=== PATIENT | male | born 1955 | race Caucasian/White ===

== ENCOUNTER 2018-01-03 08:45 | Observation (INO) | payer OTHER ==
[~2018-01-03] VITALS: Ht 190.5 cm; Wt 133.0 kg
[2018-01-03] VITALS (13 sets, daily range): BP systolic 112–135; BP diastolic 66–91
--- NOTE | ~2018-01-03 | H ---
[address] [address] HISTORY AND PHYSICAL Name: YANET TURCIOS V Room: [address] [place] Pat[place]#: [id number] Admission: 01/03/18 Attend Phys: Steve Patten MD, Discharge: 01/04/18 Date of : 53 Report #: [id number] THIS REPORT FOR: //name// Please refer to the History and Physical performed in the physician's office. By: 1533Medical Records Staff MARIA EUGENIA /JUNIE
[~2018-01-03 08:45] MED LIST: AMBIEN5 MG; ASPIR 8181 MG PO; ATORVASTATIN CA40 MG PO; CARVEDILOL12.5 MG PO; CARVEDILOL3.125 MG PO; CLOPIDOGREL75 MG PO; EFFIENT10 MG PO; IRON325 PO; LASIX 40 MG TAB40 M2 PO; LISINOPRIL5 MG PO; LOVASTATIN 20 M20 MG PO; NASONEX17 GM NASAL; NITROGLYCERIN0.4 MG SUBLING; OMEPRAZOLE 20 M20 M1; PEPCID20 MG PO; PHENTERMINE HCL30 MG PO; POTASSIUM20 PO; PRILOSEC 20 MG20 MG PO
[2018-01-03 09:17] LABS: HEMATOCRIT 47.2 % (42.0-52.0); HEMOGLOBIN 15.3 gm/dL (14.0-18.0); MCHC 32.4 g/dL (28.0-37.0); MCV 86.5 fL (80.0-100.0); MPV 8.3 fl. (7.2-11.1); RBC 5.46 mil/uL (4.50-6.00); RDW-CV 16.9 % (10.5-14.5); WBC 6.6 thou/uL (4.0-11.0)
[2018-01-03] MEDS ORDERED: ATORVASTATIN CA40 MG PO (09:20)
[2018-01-03] MEDS ORDERED: PROTONIX40 M1 PO (09:21)
[2018-01-03] MEDS ORDERED: FLOMAX0.4 MG PO (09:21)
[2018-01-03] MEDS ORDERED: PROSCAR 5MG TABL5 MG PO (09:21)
[2018-01-03] MEDS ORDERED: ALLER-FLO15.8 ML INH (09:22)
[2018-01-03] MEDS ORDERED: ALLER-TEC D 5-1 EACH PO (09:22)
[2018-01-03] MEDS ORDERED: IBUPROFEN 400400 M2 PO (09:22)
[2018-01-03 09:27] LABS: ANION GAP 10 mmol/L (7-16); BUN 21 mg/dL (7-18); CALCIUM 8.6 mg/dL (8.5-10.1); CHLORIDE 104 mmol/L (98-107); CO2 26 mmol/L (21-32); CREATININE 1.2 mg/dL (0.6-1.3); GLUCOSE 125 mg/dL (70-99); POTASSIUM 4.1 mmol/L (3.5-5.1); SODIUM 140 mmol/L (136-145)
[2018-01-03 09:29] LABS: APTT 26.8 Seconds (25.0-31.3); PROTIME 10.5 Seconds (9.20-11.50)
[2018-01-03 09:32] LABS: ALBUMIN 4.1 g/dL (3.4-5.0); ALKALINE PHOSPHATASE 63 U/L (46-116); CHOLESTEROL 170 mg/dL (<200); HDL CHOLESTEROL 65 mg/dL (>40); LDL CHOLESTEROL 99 mg/dL (<100); SERUM ASSESSMENT Clear; SGOT 17 U/L (15-37); SGPT 25 U/L (30-65); TC:HDL 2.6 Ratio (Not establshd); TRIGLYCERIDE 32 mg/dL (<150); VLDL 6 mg/dL (<40)
--- NOTE | 2018-01-03 11:06 | EKG ---
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: : 1955 Requested By: Steve Patten Order Number: [id number] Reading MD: Steve Patten Measurements Intervals [place] Rate: 78 P: 22 SC: 219 QRS: -19 QRSD: 99 T: 8 QT: 365 QTc: 416 Interpretive Statements Sinus rhythm Borderline prolonged SC interval Probable left atrial enlargement Abnormal R-wave progression, early transition Inferior infarct, old Compared to ECG 04/28/2016 14:35:16 Myocardial infarct finding now present Electronically Signed On 01-03-2018 11:05:55 CDT by Steve Patten [email or web address] <ELECTRONICALLY SIGNED> By: Steve Patten MD, FAC 01/03/18 1105 0925 Steve Patten MD, [facility] /EPI
--- NOTE | 2018-01-03 14:56 | EKG ---
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1955 Requested By: Steve Patten Order Number: [id number] Alida MD: Steve Patten Measurements Intervals [place] Rate: 65 P: 40 MD: 219 QRS: -8 QRSD: 101 T: 19 QT: 409 QTc: 426 Interpretive Statements Sinus rhythm Borderline prolonged MD interval Abnormal R-wave progression, early transition Compared to ECG 01/03/2018 09:25:24 Myocardial infarct finding no longer present Electronically Signed On 01-03-2018 14:56:33 CDT by Steve Patten [email or web address] <ELECTRONICALLY SIGNED> By: Steve Patten MD, FACC 01/03/18 1456 1352 1352 Steve Patten MD, [facility] /EPI
--- NOTE | 2018-01-03 15:32 | CARD ---
[address] [address] CARDIAC CATH REPORT Name: YANET TURCIOS V Room: [address] [place] MVaibhav#: [id number] Admission: 01/03/18 Attend Phys: Steve Patten MD, Discharge: Date of : 53 Report #: [id number] THIS REPORT FOR: //name// APPROVED REPORT Study performed: 01/03/2018 10:40:54 Patient Details Patient Status: Out-Patient Room #: The patient is a 62 year-old male Event Personnel Steve Patten Mosaicist, Misti Mayen RN Nanny/Household Manager, Carolina Ordaz, Sushant Alves (R) Scrub Procedures Performed Art Access - R femoral artery* Left Heart Cath w/or w/o Coronaries [id number] [facility] PATRICIA Place w/wo Plasty Single CIRC [id number] Risk Factors Obesity, Hypercholesterolemia, Hypertension Previous Procedures/Diagnoses Previous PCI, Previous DC Admission/Lab Medications/Medications given during procedure Aspirin, Platelet Aff. Inhib., Angiomax bolus and infusion Procedure Narrative The patient was brought electively to the Cardiac Catheterization Laboratory and was prepped and draped in a sterile manner. The right femoral was infiltrated with 2% Lidocaine subcutaneous anesthesia. A 6fr Ultimum Sheath sheath was inserted into the LCA. Coronary angiography was performed using coronary diagnostic catheters. The right coronary system was accessed and visualized with a 6fr JR 4 catheter. The left coronary system was accessed and visualized with a 6fr JL 4 catheter. The left ventricle was accessed and visualized with a 6fr Pigtail catheter. Left ventricular/Aortic Valve gradient assessed via catheter pullback. Left ventriculogram was performed in SNOW projection. Pre-demployment femoral angiogram was performed . Closure device was deployed with a 6 Fr Angioseal STS 6Fr. The patient tolerated the procedure well and there were no complications associated with the procedure. [place] [address] CARDIAC CATH REPORT Name: TAMYANET V Room: [address] MVaibhav#: [id number] Admission: 01/03/18 Attend Phys: Steve Patten MD, Discharge: Date of : 53 Report #: [id number] Intraoperative Conscious Sedation Sedation start time: 11:19 Case end Time: 12:15 Fentanyl 50 mcg Versed 2 mg Fluoro Time: 18.5 minutes Dose: DAP 051236 cGycm2 3515.17 mGy Contrast Type and Amount: Visipaque 500 ml Diagnostic Cath Left Main 0% narrowing LAD Prominent vessel with 10% mid vessel narrowing Circumflex Nondominant vessel with 90% stenosis of the distal circumflex after the takeoff of 3 marginal branches Right Coronary Dominant vessel with widely patent distal right coronary stent and 0% stenosis Left Ventriculography The left ventricle is normal in size with normal contractility. The left ventricular ejection fraction is estimated to be 60%. Left ventricular wall motion abnormalities are not present. There is no mitral insufficiency. Hemodynamics The aortic pressure is 123/68 mmHg with a mean of mmHg. The left ventricular pressure is 114/5 mmHg with a mean of mmHg. The left ventricular end diastolic pressure is 11 mmHg. There was no gradient across the aortic valve upon pullback. PCI Technique Lesion Anticoagulation was achieved with Angiomax. Percutaneous coronary intervention was performed on the distal circumflex artery segment. The lesion stenosis prior to intervention was 90% with KRISTINA 3 flow. A complex Guide Catheter was used to engage the ostium. A IG: BMW 300cm Interventional Guidewire was used to cross the lesion. BALLOON DILATION A Balloon catheter Mini Trek OTW 2X12 was inserted and inflated up to 10.00atm for 11seconds. Additional Inflation: 10.00atm for 12seconds. Additional Inflation: 12.00atm for 12seconds. STENT DEPLOYMENT A drug-eluting stent [place] RX Stent 2.0X15mm was inserted and inflated up to 12.00atm for 12seconds. Additional Inflation: 12.00atm [place] 10[place]. [place] [address] CARDIAC CATH REPORT Name: YANET TURCIOS V Room: [address] M.RBrayden#: [id number] Admission: 01/03/18 Attend Phys: Steve Patten MD, Discharge: Date of : 53 Report #: [id number] Final angiography reveals 0 % stenosis with KRISTINA 3 flow. Conclusion #1 significant coronary artery disease characterized by the following: A 10% narrowing of the midportion of the prominent LAD B nondominant circumflex with 90% distal stenosis C dominant right coronary artery with a widely patent distal right coronary stent #2 normal left-sided hemodynamics study #3 normal left ventricular systolic function, estimate ejection fraction being 60% #4 successful percutaneous coronary intervention with deployment of drug-eluting stent at the site of 90% distal circumflex stenosis with 0% residual narrowing and KRISTINA-3 flow the distal vessel Recommendations Cardiac Risk Reduction Program Medications Administered Aspirin (any) Prasugrel Diagnostic Cath Approved by: Steve Patten MD Date/Time: 01/03/2018 15:31:27 <ELECTRONICALLY SIGNED> By: Steve Patten MD, [facility] 01/03/18 1532 1532 1532Steve Pattne MD, FAC /INF
--- NOTE | 2018-01-03 19:03 | NUR ---
PT ARRIVED TOUNIT AT APPROX 1300. PT IS ALERT, ORIENTED AND ALL VSS ON RA. TELE TRACKING NSR. RIGHT GROIN SITE CDI WITH NO HEMATOMA. EDUCATED ON POST CATH ACTIVITY. CALL LIGHT IN REACH. PLEASE SEE ASSESSMENT FOR ADDITIONAL INFORMATION. WILL CONTINUE TO MONITOR
[2018-01-04] VITALS: BP 113/70
[2018-01-04 04:00] VITALS: BP 110/76
--- NOTE | 2018-01-04 04:09 | NUR ---
END SHIFT: PT RESTED WELL. NO COMPLAINTS. NO PAIN. RIGHT GROIN SITE FREE FROM BLEEDING, OOZING AND BRUISING. 2+ PEDAL PULSES NOTED. WORE CPAP WHILE SLEEPING. BASELINE NEUROPATHY IN FEET NOTED. PT IS ABLE TO WALK WITHOUT DIFFICULTY. NSR ON MONITOR. NO ECTOPY. SB WHILE SLEEPING. IVF INFUSING WITHOUT DIFFICULTY. PLANS FOR DC HOME TODAY. ASSESSMENT UNCHANGED. VSS. SAFETY PRECAUTIONS IN PLACE. CALL LIGHT IN REACH. WILL CONT TO MONITOR.
[2018-01-04 04:50] LABS: HEMATOCRIT 41.2 % (42.0-52.0); MCH 27.7 pg (26.0-34.0); MCHC 31.9 g/dL (28.0-37.0); MCV 86.8 fL (80.0-100.0); MPV 8.2 fl. (7.2-11.1); RBC 4.74 mil/uL (4.50-6.00); RDW-CV 17.1 % (10.5-14.5); WBC 13.8 thou/uL (4.0-11.0)
[2018-01-04 04:53] LABS: HEMOGLOBIN 13.1 gm/dL (14.0-18.0)
[2018-01-04 05:29] LABS: ALBUMIN 3.3 g/dL (3.4-5.0); CALCIUM 8.3 mg/dL (8.5-10.1); CREATININE 1.1 mg/dL (0.6-1.3); TOTAL BILIRUBIN 1.1 mg/dL (<0.1-1.0); TOTAL PROTEIN 6.4 g/dL (6.4-8.2); TROPONIN-I LEVEL 0.33 ng/mL (<0.06)
[2018-01-04 08:00] VITALS: BP 115/78
--- NOTE | 2018-01-04 09:57 | NUR ---
0730 ASSUMED CAARE OF PATIENT. PLEASE SEE DOCUMENTED ASSESSMENT AND GROIN SITE CHARTING. PATIENT DENIES CHEST PAIN
--- NOTE | 2018-01-04 10:10 | NUR ---
SEEN BY CARDIAC REHAB AND DR ABREU. PLAN IS TO DISCHARGE HOME THIS MORNING
[2018-01-04 10:31] VITALS: BP 115/78
[2018-01-04 10:39] VITALS: BP 115/78
[2018-01-04] MEDS ORDERED: CHILDREN'S ASPI81 M1 PO (10:58)
--- NOTE | 2018-01-04 11:39 | NUR ---
1115 DISCHARGED AMBULATORY
--- NOTE | 2018-01-04 14:00 | EKG ---
[place] [address] ELECTROCARDIOGRAM REPORT Name: YANET TURCIOS V [address] [id number] Admission: 01/03/18 Attend Phys: Steve Patten MD, Discharge: 01/04/18 Date of : 53 Report #: [id number] THIS REPORT FOR: //name// [facility] Test Date: 2018-01-04 Test Time: 08:06:09 Pat Name: YANET TURCIOS Department: Room: 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1955 Requested By: Steve Patten Order Number: [id number] Alida MD: Steve Patten Measurements Intervals [place] Rate: 83 P: 0 CO: 196 QRS: -8 QRSD: 101 T: 12 QT: 401 QTc: 472 Interpretive Statements Sinus rhythm with sinus arrhythmia Abnormal R-wave progression, early transition Compared to ECG 01/03/2018 13:52:30 No significant changes Electronically Signed On 01-04-2018 14:00:02 CDT by Steve Patten [email or web address] <ELECTRONICALLY SIGNED> By: Steve Patten MD, FACC 01/04/18 1400 08 08 Steve Patten MD, [facility] /EPI
--- NOTE | 2018-01-06 11:03 | D ---
[address] [address] DISCHARGE SUMMARY Name: YANET TURCIOS V Room: [address] [place] Pat[place]#: [id number] Admission: 01/03/18 Attend Phys: Steve Patten MD, Discharge: 01/04/18 Date of : 53 Report #: [id number] THIS REPORT FOR: //name// CC: Steve Sen DATE OF SERVICE: 01/04/2018 FINAL DISCHARGE DIAGNOSES: 1. Abnormal nuclear stress test. 2. Coronary artery disease. 3. Status post percutaneous coronary intervention to the circumflex on 01/03/2018. 4. History of ischemic cardiomyopathy. 5. Hypertension. 6. History of paroxysmal atrial fibrillation. 7. Exogenous obesity. PROCEDURES: 01/03/2018 -- left heart catheterization, left ventriculography, selective coronary arteriography and percutaneous coronary intervention of the distal circumflex. The patient is a very pleasant 62-year-old male with history of coronary artery disease, presenting in the fall of 2015 with an acute inferolateral infarction interrupted by intervention of the circumflex. He sustained an acute contrast reaction with hypotension and anaphylaxis in the label fuser tender response to appropriate measures taken at that time. In 03/2016, I performed intervention of the distal right coronary artery. He had done well until recently when he noted some chest discomfort. Nuclear stress test reflected inferobasilar ischemia. He has underlying hypertension and exogenous obesity. He underwent recatheterization on 01/03/2018, which revealed a widely patent distal right coronary stent with 90% stenosis of the distal circumflex at the previously intervened site in the fall of 2015. I performed intervention, deploying one drug-eluting stent in the distal circumflex with 0% residual narrowing and KRISTINA 3 flow of the distal vessel. The patient did well post-procedurally and there was good hemostasis at the femoral site of catheterization. Laboratory on 01/04/2018 revealed sodium 138, potassium 4.0, BUN 20, creatinine 1.1, hemoglobin 13.1, white blood cell count 13,800 with 216,000 platelets. He was discharged to home on aspirin 81 mg daily, atorvastatin 40 mg at bedtime, carvedilol 6.25 mg b.i.d., Aller-Williams D 5/120 one tablet daily, finasteride 5 mg daily, fluticasone inhaled daily, ibuprofen 400 [place] [id number] DISCHARGE SUMMARY Name: YANET TURCIOS V [address] [id number] Admission: 01/03/18 Attend Phys: Steve Patten MD, Discharge: 01/04/18 Date of : 53 Report #: [id number] discomfort, pantoprazole 40 mg b.i.d., prasugrel or Effient 10 mg daily and tamsulosin 0.4 mg daily. I will plan to see him in the office in 4-6 weeks for followup. Thus, the patient is discharged to home in stable condition on the aforementioned medications with followup as iterated above. <ELECTRONICALLY SIGNED> By: Steve Patten MD, FACC 01/06/18 1103 1729 2005Steve Patten MD, FACC /nt
== END 2018-01-04 11:20 | disposition home or self-care (01) ==
LOC: M.CL 08:45 → M.TBA-CV 12:33 → M.2W 12:50
PROVIDERS: ADMIT Internal Medicine
DX: I25.10 Atherosclerotic heart disease of native coronary artery without angina pectoris (principal); I25.5 Ischemic cardiomyopathy; I48.0 Paroxysmal atrial fibrillation; I10 Essential (primary) hypertension; E66.09 Other obesity due to excess calories; R94.39 Abnormal result of other cardiovascular function study